=== PATIENT | female | born 1960 | race Caucasian/White ===

== ENCOUNTER → 2016-04-14 | Outpatient (CLI) | payer OTHER ==
[~2016-04-14] MED LIST: NITR100C PO; PHEN-639 PO
[2016-04-14 14:18] VITALS: BP 132/87
--- NOTE | 2016-04-14 14:18 | Urgent Care T Sheet Gen (E) ---
Intake General Temperature (Fahrenheit): 97.8 Pulse: 94 Blood Pressure Systolic: 132 Blood Pressure Diastolic: 87 Respirations: 16 SPO2: 96 Weight (Pounds): 192 Chief Complaint: UTI Source: Patient Exam Limitations: No limitations History of Present Illness Initial Comments Pt reports she is having burning with urination, frequency, urgency, and back and pelvic pain consistent with a urinary tract infection. She feels feverish and ill, and her stomach is upset to the point her tongue is burning, but she has not checked her temperature. This started yesterday and pushing fluids has not seemed to help. Ibuprofen helps but makes her sleepy. Pt reports she has a history of interstitial cystitis, but doesn't know much about this. She has not had symptoms of a UTI for over a year, at which time she was treated with antibiotics. She cannot recall ingesting anything abnormal recently, and has not been triggered by citrus, coffee, spicy food, or tomatoes in the past. Onset & Duration: Unsure, Days (yesterday sometime) Timing: Still present Severity: Moderate Similar Sympotms Previously: Yes (with urinary tract infections and also interstitial cystitis) Allergies: Coded Allergies: Sulfa (Sulfonamide Antibiotics) (Verified Allergy, Severe, Hives, 04/14/16) in throat Penicillins (Verified Allergy, Intermediate, Hives, 04/14/16) Home Meds Active Scripts Nitrofurantoin Macrocrystal (Nitrofurantoin)100 Mg [id number] Mg PO BID #10 CAP Prov:KIM FISCHER 04/14/16 Phenazopyridine HCl (Pyridium)100 Mg [id number] Mg PO TID PRN burning with urination #9 TAB Ref 0 If still having urgency/frequency, take 1 by mouth twice daily for 5 days Prov:KIM FISCHER 04/14/16 Respiratory Constitutional Symptoms: No Chills, Fever (subjective) Malaise EENTM: No symptoms reported Respiratory: No symptoms reported Cardiovascular: No symptoms reported Gastrointestinal/Abdominal: See HPI Abdominal pain (suprapubic) NauseaNo Vomiting Genitourinary: See HPI Skin: No symptoms reported Neurological: No symptoms reported Immunologic/Allergies: No symptoms reported All Other Systems Reviewed Remaining Systems: All other systems reviewed with negative findings Past [id number]-[id number] Hx Genitouinary Genitourinary History: Dysuria (interstitial cystitis with hematuria) Physical Exam Physical Exam General Appearance: WD/WN Mild distress Eyes, Ears, Nose, Throat Ex: PERRL/EOMI Neck Exam: Non tender Full range of motion Supple Normal inspection Respiratory Exam: Chest non-tender Lungs clear Normal breath sounds No respiratory distress Cardiovascular Exam: Regular rate, rhythm No murmur GI/ Exam: No organomegaly Normal bowel sounds No distention Tenderness ( mild suprapubic tenderness, also some epigastric (pt reports this is chronic)) No Guarding, No Rebound Back Exam: Normal Inspection No CVA tenderness Skin Exam: Normal color Warm/dry/intact No rashes Neurologic/Psychiatric Exam: Oriented times 4 Mood/affect nml Progress/Orders Lab Results Labs Results: UA UA Lab Results ph 5.0 Specific [place] 1.005 Protein neg Glucose (UA) neg Ketones neg Blood small Nitrates neg Bilirubin neg Urobilirubin 0.2 Leukocyte Esterase neg Departure Urgent Care Impression Chief Complaint: UTI Impression: Primary Impression: Cystitis Departure Disposition: HOME OR SELF-CARE Condition: Stable Referrals: FADUMO MURCIA MD (PCP) Additional Instructions: Discussed with pt that 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 I know she does not often have these symptoms but if she begins to notice a pattern with intercourse , or specific foods, some of these things can trigger symptoms with interstitial cystitis. I recommend trying the pyridium, which she has never had before, for a day or two and see if the frequency and urgency continue despite removing the pain. If this is the case, or if she is worsening with fever, chills, increasing pain, blood, or other concerning symptoms, I have also ordered antibiotics which she can start tomorrow or Saturday. Because of the inclement weather and holiday next Saturday, I think it is better to have it on hand than make her go to the ER if she becomes worse. Pt states understanding and agrees to plan. All questions answered. Scripts Nitrofurantoin Macrocrystal (Nitrofurantoin)100 Mg [id number] Mg PO BID #10 CAP If still having urgency/frequency, take 1 by mouth twice daily for 5 days Prov:KIM FISCHER 04/14/16 Phenazopyridine HCl (Pyridium)100 Mg [id number] Mg PO TID PRN burning with urination #9 TAB Ref 0 Prov:KIM FISCHER 04/14/16 End of report . KIM FISCHER Apr 14, 2016 10:05
== END ==
LOC: MHUC 09:12
PROVIDERS: ATTEND Physician Assistant Medical
DX: N30.90 Cystitis, unspecified without hematuria (principal)
CPT/HCPCS: 81002; 99213

== ENCOUNTER → 2016-04-20 | Outpatient (CLI) | payer OTHER | LOC: RAD 12:50 | PROVIDERS: ATTEND Physician Assistant Medical | DX: R10.13 Epigastric pain (principal); R74.0 Nonspecific elevation of levels of transaminase and lactic acid dehydrogenase [LDH] | CPT/HCPCS: 74170; Q9967 ==

== ENCOUNTER → 2016-05-22 | Outpatient (CLI) | payer OTHER | LOC: RAD 08:55 | PROVIDERS: ATTEND Nurse Practitioner | DX: R74.8 Abnormal levels of other serum enzymes (principal); K76.89 Other specified diseases of liver; Z90.49 Acquired absence of other specified parts of digestive tract | CPT/HCPCS: 76700 ==